=== PATIENT | male | born 1930 | race Hispanic/Latino ===

== ENCOUNTER 2018-10-19 14:42 | Emergency (ER) | payer MEDICARE, MEDICAID ==
[2018-10-19 15:40] LABS: #Eosinphils 0.2 thou/uL (0.0-0.7); #Lymphocytes 1.5 thou/uL (1.20-3.40); #Monocytes 0.6 thou/uL (0.11-0.59); %Basophils 0.3 % (0.0-1.0); %Eosinophils 1.6 % (0.0-10.0); %Lymphocytes 14.2 % (21.0-51.0); %Monocytes 6.2 % (0.0-10.0); %Neutrophils 77.8 % (42.0-75.0); Hemoglobin 14.3 g/dL (14.0-18.0); Mean Corpuscular Hemoglobin 28.7 pg (27.0-31.0); Mean Corpuscular Volume 89.7 fL (78.0-98.0); Mean Platelet Volume 7.5 fL (7.4-10.4); Platelet Count 181 thou/uL (130-400); RBC Distribution Width 12.2 % (11.5-14.5); Red Blood Cell (RBC) Count 4.97 mill/uL (4.70-6.10); White Blood Cell (WBC) Count 10.2 thou/uL (4.8-10.8)
[2018-10-19 16:01] LABS: ALT (SGPT) 37 U/L (8-55); AST (SGOT) 39 U/L (5-34); Albumin 3.9 g/dL (3.4-4.8); Alkaline Phosphatase 70 U/L (40-150); Anion Gap 13 mmol/L (10-20); BUN (Urea Nitrogen) 24 mg/dL (8.4-25.7); Bilirubin, Total 0.4 mg/dL (0.2-1.2); Calc. Creatinine Clearance 0 mL/min (70-130); Calcium 9.3 mg/dL (7.8-10.44); Carbon Dioxide 25 mmol/L (23-31); Chloride 103 mmol/L (98-107); Estimated GFR-MDRD 77; Globulin 2.4 g/dL (2.4-3.5); Glucose 201 mg/dL (83-110); Magnesium 1.7 mg/dL (1.6-2.6); Potassium 4.4 mmol/L (3.5-5.1); Protein, Total 6.3 g/dL (5.8-8.1); Sodium 137 mmol/L (136-145)
== END 2018-10-19 16:49 | disposition home or self-care (01) ==
LOC: ERS 14:42
DX: R20.2 Paresthesia of skin (principal); E78.5 Hyperlipidemia, unspecified; E11.9 Type 2 diabetes mellitus without complications
CPT/HCPCS: 36415; 80053; 83735; 84484; 85025; 93005

== ENCOUNTER 2018-10-30 15:51 | Inpatient (IN) | payer MEDICARE, MEDICAID ==
[2018-10-30 16:35] LABS: #Eosinphils 0.1 thou/uL (0.0-0.7); #Lymphocytes 1.4 thou/uL (1.20-3.40); #Monocytes 0.6 thou/uL (0.11-0.59); #Neutrophils 4.3 thou/uL (1.40-6.50); %Basophils 0.3 % (0.0-1.0); %Eosinophils 1.5 % (0.0-10.0); %Lymphocytes 21.3 % (21.0-51.0); %Monocytes 9.3 % (0.0-10.0); %Neutrophils 67.6 % (42.0-75.0); Hemoglobin 14.7 g/dL (14.0-18.0); Mean Corpuscular HGB CONC 32.2 g/dL (32.0-36.0); Mean Corpuscular Hemoglobin 29.2 pg (27.0-31.0); Mean Corpuscular Volume 90.7 fL (78.0-98.0); Mean Platelet Volume 7.5 fL (7.4-10.4); Platelet Count 179 thou/uL (130-400); RBC Distribution Width 12.2 % (11.5-14.5); Red Blood Cell (RBC) Count 5.03 mill/uL (4.70-6.10); White Blood Cell (WBC) Count 6.4 thou/uL (4.8-10.8)
--- NOTE | 2018-10-30 16:45 | CT ---
CT Brain WO Con History: Intermittent right arm numbness and right face pain Comparison: MRI brain 2015 Findings: No acute hemorrhage or infarct. No midline shift or mass effect. Ventricular size and extra -axial CSF spaces are normal. 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 Mild atrophy. Left subcortical white matter microangiopathy changes as well as left inferior frontal gyrus encephalomalacia. Calvarium is intact. Paranasal sinuses and mastoids are clear. Impression: Chronic findings. No acute intracranial abnormality. Focal area of encephalomalacia left inferior frontal gyrus felt to be chronic.
[2018-10-30 16:55] LABS: ALT (SGPT) 29 U/L (8-55); AST (SGOT) 30 U/L (5-34); Albumin 4.2 g/dL (3.4-4.8); Alkaline Phosphatase 58 U/L (40-150); Anion Gap 17 mmol/L (10-20); BUN (Urea Nitrogen) 17 mg/dL (8.4-25.7); Bilirubin, Total 0.5 mg/dL (0.2-1.2); Calc. Creatinine Clearance 0 mL/min (70-130); Calcium 9.8 mg/dL (7.8-10.44); Carbon Dioxide 25 mmol/L (23-31); Chloride 101 mmol/L (98-107); Estimated GFR-MDRD 79; Globulin 2.9 g/dL (2.4-3.5); Glucose 145 mg/dL (83-110); Potassium 4.5 mmol/L (3.5-5.1); Protein, Total 7.1 g/dL (5.8-8.1); Sodium 138 mmol/L (136-145)
[2018-10-30 20:27] LABS: Troponin I 0.015 ng/mL (< 0.028)
[2018-10-30] MEDS ORDERED: Diltiazem 125 MG in Sodium Chloride 0.9% 100 ML IVPB SCH (22:00)
[2018-10-30] MEDS ORDERED: Ondansetron PF 4 MG/2 ML Vial IVP PRN (22:32)
[2018-10-30] MEDS ORDERED: Acetaminophen 650 MG Suppository PR PRN (22:32)
[2018-10-30] MEDS ORDERED: Ondansetron ODT 4 MG TAB PO PRN (22:32)
[2018-10-30] MEDS ORDERED: Acetaminophen 325 MG TAB PO PRN (22:32)
[2018-10-30] MEDS ORDERED: hydrALAZINE 20 MG/ML VIAL SLOW IVP PRN (22:35)
[2018-10-30 22:40] LABS: Troponin I 0.012 ng/mL (< 0.028)
[2018-10-30] MEDS ORDERED: Dextrose 5% in Water 1,000 ML IV PRN (22:46)
[2018-10-30] MEDS ORDERED: Dextrose 50% Abboject 50 ML SYRINGE SLOW IVP PRN (22:46)
--- NOTE | 2018-10-30 23:34 | HP ---
PRIMARY CARE DOCTOR: Dr. Eliot Akers. CODE STATUS: The code status for this patient is DNR, DNI, meeting with family and patient. TIME OF EVALUATION: 10:30 p.m. CHIEF COMPLAINT: Intermittent right arm numbness and right-sided facial numbness. HISTORY OF PRESENT ILLNESS: An 88-year-old male patient, past medical history of diabetes and hyperlipidemia, came to the hospital after having an episode of right-sided hand and arm numbness, associated with right-sided facial numbness. The patient reported that these symptoms have been going on now for 3 weeks with no clear triggers, no improvement, also the family reporting the patient has had some slurred speech couple of days ago. Symptoms are mild to moderate. The patient was found to be in AFib with RVR, was started on Cardizem drip, presented to the hospital. REVIEW OF SYSTEMS: CONSTITUTIONAL: No fever, chills, or generalized weakness. RESPIRATORY: No cough, sputum production, or shortness of breath. CARDIOVASCULAR: No chest pain. Patient has palpitation. GASTROINTESTINAL: No nausea, vomiting, diarrhea, or abdominal pain. 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 No headache or feeling lightheaded. GENITOURINARY: No burning on urination. EXTREMITIES: No leg swelling. All other systems were reviewed and negative, except for the findings mentioned above. PAST MEDICAL HISTORY: As mentioned in the HPI. SURGICAL HISTORY: Cholecystectomy. PSYCHIATRIC HISTORY: No previous psych history. SOCIAL HISTORY: No alcohol or drugs. No smoking history. Lives at home with family. FAMILY HISTORY: Reviewed and noncontributory to current presentation. ALLERGIES: NO KNOWN DRUG ALLERGIES. REPORTED MEDICATIONS: Metformin, omeprazole, pantoprazole, and tramadol. PHYSICAL EXAMINATION: VITAL SIGNS: On presentation, blood pressure 156/76 with heart rate 94, respiratory rate was 18, temperature 98.2, pain 0/10, and oxygen saturation was 96% on room air. GENERAL APPEARANCE: Patient is alert, oriented, not in acute distress. HEENT: Eyes, normal conjunctivae. Moist oral mucosa. Anicteric. NECK: No JVD. RESPIRATORY: Bilateral air entry. No rales. No wheezes. Symmetric expansion. CARDIOVASCULAR: Normal rate and regular rhythm. No murmurs. No gallop. No edema. ABDOMEN: Soft. Normal bowel sounds. MUSCULOSKELETAL: Baseline range of motion and strength. No tenderness. SKIN: Warm, intact. No pallor. No rash. No redness. Capillary refill seems to be intact. NEUROLOGIC: No evidence of any new focal weakness. Cranial nerves seem to be intact. PSYCH: Patient is in good mood. No anxiety. Optimal judgment. IMAGING: EKG was reviewed. The patient has normal sinus rhythm with a rate of 89 with TX 154, QRS 106, QT corrected 452. Another previous telemetry reading, the patient has in the rate of [address] was done. The patient has a chronic finding. No acute intracranial abnormalities. Focal area, encephalomalacia in left inferior frontal gyrus felt to be chronic. LABORATORY DATA: Labs are reviewed. The patient has white count 6.4, hemoglobin 14.7, MCV 90.7, and platelet count 179. Chemistry; patient has sodium 138, potassium 4.5, chloride 101, carbon dioxide 25, anion gap 17, BUN 17, creatinine 0.91, GFR 79, glucose 145, calcium 9.8, and total bilirubin 0.5. LFTs were negative. Troponin was negative x2. ASSESSMENT AND PLAN: The patient will be placed in the hospital for the following medical problems. 1. Possible transient ischemic attack symptoms. The patient has resolved. Patient has right upper extremity and right facial numbness, still has some numbness on the right hand, the slurred speech also has resolved. This could be likely transient ischemic attacks coming from patient having episodes of paroxysmal flutter and atrial fibrillation, that had been silent at this time. We will do a stroke protocol, consult Neuro, follow recommendations. 2. Atrial fibrillation with rapid ventricular response/flutter. The patient has flutter at 130 to 150s and also episode of atrial fibrillation. The patient was started on Cardizem and now has converted back to normal sinus rhythm. We will do an echo in the morning. We will consult Cardiology for any further recommendation and treatment. 3. Uncontrolled diabetes. Patient has blood sugar of 145. We will place the patient on sliding scale for optimal control. Diabetic diet is advised. Job ID: [id number]
[2018-10-31 00:33] VITALS: BMI 25.7
[2018-10-31 05:58] LABS: #Basophils 0.1 thou/uL (0.0-0.2); #Eosinphils 0.1 thou/uL (0.0-0.7); #Lymphocytes 1.6 thou/uL (1.20-3.40); #Monocytes 0.6 thou/uL (0.11-0.59); #Neutrophils 3.3 thou/uL (1.40-6.50); %Eosinophils 2.4 % (0.0-10.0); %Lymphocytes 28.3 % (21.0-51.0); %Monocytes 10.4 % (0.0-10.0); %Neutrophils 57.9 % (42.0-75.0); Hemoglobin 13.8 g/dL (14.0-18.0); Mean Corpuscular HGB CONC 31.5 g/dL (32.0-36.0); Mean Corpuscular Hemoglobin 28.3 pg (27.0-31.0); Mean Corpuscular Volume 89.8 fL (78.0-98.0); Mean Platelet Volume 7.8 fL (7.4-10.4); Platelet Count 155 thou/uL (130-400); RBC Distribution Width 12.2 % (11.5-14.5); Red Blood Cell (RBC) Count 4.88 mill/uL (4.70-6.10); White Blood Cell (WBC) Count 5.7 thou/uL (4.8-10.8)
[2018-10-31 06:20] LABS: Anion Gap 14 mmol/L (10-20); BUN (Urea Nitrogen) 17 mg/dL (8.4-25.7); Calc. Creatinine Clearance 68 mL/min (70-130); Calcium 9.5 mg/dL (7.8-10.44); Carbon Dioxide 26 mmol/L (23-31); Cardiac Risk 2.6 (Less than 4.5); Chloride 101 mmol/L (98-107); Cholesterol 122 mg/dl (< 200 Desired); Estimated GFR-MDRD Greater than 90; Glucose 115 mg/dL (83-110); HDL Cholesterol 47 mg/dL (>60 Neg Risk); LDL Cholesterol, Calculated 58 mg/dL; Potassium 3.8 mmol/L (3.5-5.1); Sodium 137 mmol/L (136-145); Triglycerides 87 mg/dL (Less than 150)
[2018-10-31] MEDS ORDERED: Aspirin 325 mg Enteric Coated Tablet PO SCH (09:00)
[2018-10-31] MEDS ORDERED: Enoxaparin Sodium 40 MG/0.4 ML SYRINGE SC SCH (09:00)
[2018-10-31] MEDS ORDERED: Amiodarone 150 MG in Dextrose 5% in Water 100 ML IVPB SCH (10:00)
[2018-10-31] MEDS: Amiodarone 450 MG in Dextrose 5% in Water 250 ML IVPB SCH ×2 (10:55→21:52)
[2018-10-31] MEDS ORDERED: Cyclobenzaprine 10 MG TAB PO PRN (11:30)
[2018-10-31] MEDS ORDERED: Famotidine 20 MG TAB PO SCH (11:45)
[2018-10-31] MEDS: HumaLOG 300 UNITS/3 ML VIAL SC PRN ×2 (12:03→18:03)
--- NOTE | 2018-10-31 14:06 | MRI ---
MRI BRAIN: HISTORY: Intermittent right arm numbness and facial pain. Multiplanar multisequence noncontrast enhanced MRI images brain obtained. FINDINGS: Images demonstrate small areas of old infarction in the right cerebral peduncle. Small areas of old stroke with gliotic changes seen in the left frontal and frontoparietal regions. No evidence of acute intracranial masses or lesions seen. IMPRESSION: Old left frontal areas of strokes with gliotic changes and old right cerebral peduncle area of lacuna r infarction. No acute intracranial abnormality seen. Transcribed Date/Time: 10/31/2018 2:14 PM
--- NOTE | 2018-10-31 15:07 | PDOC.PN ---
- Subjective Encounter Start Date: 10/31/18 Encounter Start Time: 15:05 Subjective: f/u for A-flutter RVR on Amiodarone gtt and no prior hx. r/o for CVA with -: negative MRI brain. Feels ok overall. No recurrent numbness or -: paresthesias. - Objective Resuscitation Status - Order Detail: 10/30/18 22:32 Resuscitation Status Routine Resuscitation Status: DNAR: NO Resuscitation Discussed with: as stated by patient MAR Reviewed: Yes Vital Signs & Weight: Vital Signs (12 hours) Temp Pulse Resp BP BP Pulse Ox 10/31/18 11:35 97.4 F L 99 16 101/61 97 10/31/18 07:57 97.1 F L 74 16 130/63 96 10/31/18 03:50 97.9 F 76 16 131/66 97 Weight Weight 145 lb 4.8 oz I&O: 10/30/18 10/31/18 11/01/18 06:59 06:59 06:59 Intake Total 300 110 Balance 300 110 Result Diagrams: 10/31/18 05:24 10/31/18 05:24 Additional Labs: Accuchecks 10/31/18 10/31/18 10:47 06:16 POC Glucose 256 H 114 H Radiology Reviewed by me: Yes (Echo - EF 55-60%, mild LAE) EKG Reviewed by me: Yes (Tele - A-flutter) Phys Exam - Physical Examination Constitutional: NAD HEENT: PERRLA, sclera anicteric, oral pharynx no lesions Neck: no nodes, no JVD, supple, full ROM Respiratory: no wheezing, no rales, no rhonchi, clear to auscultation bilateral S1, S2 Cardiovascular: no significant murmur, no rub, gallop, irregular Gastrointestinal: soft, non-tender, no distention, positive bowel sounds Musculoskeletal: no edema, pulses present Neurological: normal sensation, moves all 4 limbs Psychiatric: A&O x 3 Skin: normal turgor, cap refill <2 seconds Dx/Plan (1) Atrial flutter with rapid ventricular response Code(s): I48.92 - UNSPECIFIED ATRIAL FLUTTER Status: Acute Comment: Continue Amiodarone for rate control, EP consult for consideration of ablation, start Eliquis 5mg BID (2) TIA (transient ischemic attack) Code(s): G45.9 - TRANSIENT CEREBRAL ISCHEMIC ATTACK, UNSPECIFIED Status: Acute Comment: Suspected, likley due to #1, continue ASA 325mg daily (3) Diabetes mellitus type 2 Code(s): E11.9 - TYPE 2 DIABETES MELLITUS WITHOUT COMPLICATIONS Status: Chronic Comment: Resume Metformin, ISS, ADA (4) Dyslipidemia Code(s): E78.5 - HYPERLIPIDEMIA, UNSPECIFIED Status: Chronic Comment: Resume Pravachol 20mg HS - Plan plan discussed w/ family, out of bed/ambulate, DVT proph w/SCDs Stable currently -: Continue ASA 325mg daily -: Resume Pravachol 20mg HS -: EP consult for consideration of ablation -: Start Eliquis 5mg BID * Resume Metformin 500mg BID * Check Carotid sono * Convert to inpt status
[2018-10-31] MEDS ORDERED: Apixaban 5 MG TAB PO SCH (15:15)
--- NOTE | 2018-10-31 16:39 | ULT ---
CAROTID ULTRASOUND WITH GUTIÉRREZ SCALE AND DOPPLER DUPLEX COLOR FLOW IMAGING SPECTRAL ANALYSIS PERFORMED: 10/31/18 CLINICAL INDICATION: CVA, neurologic deficit. FINDINGS: There is scattered plaque formation of the carotid arteries. PEAK SYSTOLIC VELOCITY (CM/S): Right CCA 69 Left CCA 43 Right ICA 71 Left ICA 126 There is antegrade flow within the visualized bilateral vertebral arteries. Note is made that the left ECA is not reliably visualized for comment. Right ECA velocity is approxim ately 41 cm/s. IMPRESSION: 1. 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 2. No hemodynamically significant stenosis is demonstrated within the right internal carotid art sophia. 3. Bilateral antegrade vertebral artery flow. POS: IRINEO
[2018-10-31] MEDS: metFORMIN 500 MG TAB PO SCH (20:02)
[2018-10-31] MEDS: Simvastatin 5 MG TAB PO SCH (20:02)
[2018-10-31] MEDS: Famotidine 20 MG TAB PO SCH (20:02)
--- NOTE | 2018-10-31 21:46 | CON ---
DATE OF CONSULTATION: HISTORY OF PRESENT ILLNESS: Demetri Alberts is a pleasant 88-year-old male with history of diabetes and hyperlipidemia who came to the hospital for further evaluation of right hand and arm numbness as well as right facial numbness. On October 19, he presented to the emergency room with similar type complaints and no specific etiology was found and he was discharged. There was no radiological evaluation. He had continued numbness and yesterday had some slurred speech and his family brought him back. Initial EKG in the emergency room showed normal sinus rhythm; however, he has developed atrial flutter with rate of 150 per minute as well as atrial fibrillation. He was to be placed on diltiazem drip; however, blood pressure was low and so that was not given. I have placed him on amiodarone drip and his rate has slowed; however, he continues to be in atrial fibrillation. He has felt palpitations in the hospital; however he states he has not had that at home. He denies any chest discomfort or shortness of breath. PAST MEDICAL HISTORY: Hypercholesterolemia and diabetes. MEDICATIONS: 1. Aspirin 81 daily. 2. Pepcid 40 mg daily. 3. Metformin 500 b.i.d. 4. Omeprazole 40 daily. 5. Pravastatin 20 at bedtime. ALLERGIES: NONE. SOCIAL HISTORY: He does not smoke or drink. FAMILY HISTORY: Negative for coronary artery disease. REVIEW OF SYSTEMS: A 12-point review of systems is otherwise unremarkable. PHYSICAL EXAMINATION: VITAL SIGNS: Blood pressure 101/61, pulse of 99, irregularly irregular. HEENT: PERRL. NECK: Supple. CHEST: Clear. CARDIAC: S1 and S2 normal without any S3, S4, or murmurs. ABDOMEN: Normal bowel sounds without tenderness or organomegaly. EXTREMITIES: Revealed no clubbing, cyanosis, or edema. NEUROLOGICAL: Grossly intact, although he states that his right arm and right face feel numb. LABORATORY DATA: EKG on admission revealed normal sinus rhythm with incomplete right bundle-branch block. He has since developed atrial fibrillation. Echocardiogram revealed ejection fraction of 55% to 60%, mild left atrial enlargement, mild mitral regurgitation, and mild tricuspid regurgitation. Brain MRI revealed old left frontal areas of strokes with gliotic change in old right cerebellar peduncular area of lacunar infarct. Hemoglobin 13.8, hematocrit 43.9, white count 5700, platelets 155,000. Sodium 137, potassium 3.8, chloride 101, carbon dioxide 26, BUN 17, creatinine 0.71, glucose 115. Troponin I is normal x3. TSH is normal, cholesterol 122, triglycerides 87, HDL 47, LDL 58. IMPRESSION: 1. Finding of strokes on MRI, probably related to his 2-3 weeks of right arm numbness and right facial numbness. 2. Paroxysmal atrial fibrillation and flutter. 3. Normal left ventricular function. 4. Hyperlipidemia. 5. Diabetes. PLAN: Situation discussed with the patient and his daughter. He has never had any gastrointestinal bleeding and now will be started on Eliquis 5 mg b.i.d. He will continue on the IV amiodarone in the hopes of securing normal sinus rhythm. Electrophysiology will be consulted regarding possibility of a catheter ablation of his atrial flutter. Carotid Doppler will be performed. Job ID: [id number]
--- NOTE | 2018-10-31 22:16 | CON ---
DATE OF CONSULTATION: 10/31/2018 CONSULTING PHYSICIAN: Hospitalist Service. IMPRESSION: 1. Minor stroke with residual right sided numbness. 2. Prior left thalamic and left frontal areas of infarction. 3. Atrial fibrillation. PLAN: 1. Eliquis. 2. Low-dose statin. 3. Review carotid ultrasound. HISTORY OF PRESENT ILLNESS: Mr. Alberts is an 88-year-old gentleman with a distant history of Paz palsy. He developed acute facial numbness and finger numbness on the right side prior to admission. There was a slight transient trouble with his speech. His symptoms have improved. He still reports residual numbness in the fingertips. His MRI of the brain did not show any evidence of an acute infarction. His echocardiogram shows a 60% to 65% ejection fraction. He has been seen by Cardiology and started on Eliquis. PAST MEDICAL HISTORY: Otherwise negative. ALLERGIES: NONE. SOCIAL HISTORY: Unremarkable. FAMILY HISTORY: Noncontributory. REVIEW OF SYSTEMS: 10 system review of systems is otherwise negative. PHYSICAL EXAMINATION: VITAL SIGNS: Blood pressure 131/76, pulse 85, respirations 16, and temperature 97.2. HEENT: Pupils equal and reactive. Conjunctivae clear. Oropharynx clear. NECK: Supple. EXTREMITIES: No cyanosis or edema. NEUROLOGIC: He is alert and cooperative. His speech is fluent and clear. Cranial nerves were intact. Motor exam showed good strength bilaterally. His sensation was subjectively decreased in the fingers of the right hand. There is no fix or drift. Gait was not tested. No abnormal movements were seen. IMAGING DATA: Reviewed. SUMMARY: I agree with current treatment plan. I would be happy to follow up with him in the office. Job ID: [id number]
[2018-11-01] MEDS: Famotidine 20 MG TAB PO SCH ×2 (08:40→21:07)
[2018-11-01] MEDS: metFORMIN 500 MG TAB PO SCH ×2 (08:41→21:07)
[2018-11-01] MEDS: Apixaban 5 MG TAB PO SCH ×2 (08:41→21:07)
[2018-11-01] MEDS ORDERED: (Bromfenac Sodium [Prolensa] 1 DROP) L EYE SCH (09:00)
[2018-11-01] MEDS: HumaLOG 300 UNITS/3 ML VIAL SC PRN ×2 (12:09→18:47)
--- NOTE | 2018-11-01 14:10 | PDOC.PN ---
- Subjective Encounter Start Date: 11/01/18 Encounter Start Time: 14:00 Subjective: f/u for TIA/? subacute mild CVA and A-fib/flutter RVR on Amiodarone -: gtt. Feels ok overall and denies any R paresthesias. - Objective Resuscitation Status - Order Detail: 10/30/18 22:32 Resuscitation Status Routine Resuscitation Status: DNAR: NO Resuscitation Discussed with: as stated by patient MAR Reviewed: Yes Vital Signs & Weight: Vital Signs (12 hours) Temp Pulse Resp BP BP BP Pulse Ox 11/01/18 11:31 97.5 F L 81 20 131/59 L 95 11/01/18 07:32 97.4 F L 80 16 119/74 96 11/01/18 03:45 97.9 F 81 16 103/57 L 96 Weight Weight 145 lb 4.8 oz I&O: 10/31/18 11/01/18 11/02/18 06:59 06:59 06:59 Intake Total 300 570 480 Balance 300 570 480 Result Diagrams: 10/31/18 05:24 10/31/18 05:24 Additional Labs: Accuchecks 11/01/18 11/01/18 10/31/18 10:36 05:48 19:21 POC Glucose 223 H 137 H 140 H 10/31/18 16:37 POC Glucose 171 H Laboratory Tests 10/30/18 10/31/18 10/31/18 22:07 09:54 09:54 Magnesium 1.4 L Troponin I 0.012 TSH 3rd Generation 1.0006 Radiology Reviewed by me: Yes (Carotid sono - mod stenosis L ICA) EKG Reviewed by me: Yes (Tele - SR in 70's) Phys Exam - Physical Examination Constitutional: NAD HEENT: PERRLA, sclera anicteric, oral pharynx no lesions Neck: no nodes, no JVD, supple, full ROM Respiratory: no wheezing, no rales, no rhonchi, clear to auscultation bilateral S1, S2 Cardiovascular: RRR, no significant murmur, no rub, gallop Gastrointestinal: soft, non-tender, no distention, positive bowel sounds Musculoskeletal: no edema, pulses present Neurological: normal sensation, moves all 4 limbs Psychiatric: A&O x 3 Skin: normal turgor, cap refill <2 seconds Dx/Plan (1) Atrial flutter with rapid ventricular response Code(s): I48.92 - UNSPECIFIED ATRIAL FLUTTER Status: Acute Comment: Continue Amiodarone for rate control, EP consult for consideration of ablation, start Eliquis 5mg BID (2) TIA (transient ischemic attack) Code(s): G45.9 - TRANSIENT CEREBRAL ISCHEMIC ATTACK, UNSPECIFIED Status: Acute Comment: Suspected, likley due to #1, continue ASA 81mg daily (3) Diabetes mellitus type 2 Code(s): E11.9 - TYPE 2 DIABETES MELLITUS WITHOUT COMPLICATIONS Status: Chronic Comment: Resume Metformin, ISS, ADA (4) Dyslipidemia Code(s): E78.5 - HYPERLIPIDEMIA, UNSPECIFIED Status: Chronic Comment: Resume Pravachol 20mg HS - Plan 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
[2018-11-01] MEDS: Amiodarone 450 MG in Dextrose 5% in Water 250 ML IVPB SCH (16:55)
[2018-11-01] MEDS: Dronedarone HCl 400 MG TAB PO SCH (16:55)
[2018-11-01] MEDS: Simvastatin 5 MG TAB PO SCH (21:07)
[2018-11-02 08:11] VITALS: BP 123/60; TEMP 97.9
[2018-11-02] MEDS ORDERED: Aspirin 81 mg Enteric Coated Tablet PO SCH (09:00)
[2018-11-02] MEDS: Famotidine 20 MG TAB PO SCH (09:29)
[2018-11-02] MEDS: metFORMIN 500 MG TAB PO SCH (09:29)
[2018-11-02] MEDS: Dronedarone HCl 400 MG TAB PO SCH (09:29)
[2018-11-02] MEDS: Apixaban 5 MG TAB PO SCH (09:29)
--- NOTE | 2018-11-02 11:55 | DIS ---
DATE OF ADMISSION: 10/31/2018 DATE OF DISCHARGE: 11/02/2018 DISCHARGE DIAGNOSES: 1. Atrial fibrillation/flutter with rapid ventricular response, current sinus mechanism. 2. Transient ischemic attack. 3. Diabetes mellitus type 2, stable. 4. Dyslipidemia. CONSULTATIONS: 1. Dr. Yobany Mendenhall with Cardiology Service. 2. Dr. Adebayo Magaña with Neurology Service. PERTINENT LABORATORY AND X-RAY FINDINGS: Troponin I negative x3. Total cholesterol 122, triglycerides 87, HDL 47, and LDL 58. TSH 1.00. CBC within normal limits. CT of the brain without contrast dated 10/30/2018 showed no acute intracranial process. Encephalomalacia of the left inferior frontal gyrus noted. MRI of the brain dated 10/31/2018 showed old left frontal gliotic changes and old right cerebral peduncle area of lacunar infarct. 2D transthoracic echocardiogram dated 10/31/2018 showed ejection fraction of 55% to 60%. Mild left atrial enlargement noted. Carotid Doppler study dated 10/31/2018 showed moderate left ICA stenosis. HOSPITAL COURSE: The patient was initially admitted to the Stroke Unit after presenting with intermittent right upper extremity and facial paresthesias. The patient underwent general stroke protocol including CT and MRI imaging of the brain showing no acute CVA. The patient with evidence of a prior old mild CVA as stated previously. The patient received aspirin as well as underwent a carotid Doppler study showing moderate stenosis of the left internal carotid artery. The patient was also noted at the time of admission with atrial fibrillation/flutter with rapid ventricular response with heart rates in the 130s to 150s. The patient was initiated on amiodarone infusion for rate control and remained in sinus mechanism throughout the hospital course. Due to the patient's presentation and arrhythmia, the patient was placed on Eliquis 5 mg b.i.d. and transitioned to Multaq 400 mg b.i.d. The patient remained clinically stable throughout the hospital course, tolerating regular oral intake with stable vital signs. The patient ambulating without assistance or difficulty and overall clinically stable. I have examined the patient at the time of discharge and discussed followup instructions. The patient verbalized understanding and in agreement, ready for discharge on 11/02/2018. DISCHARGE MEDICATIONS: 1. Enteric-coated aspirin 81 mg p.o. daily. 2. Multaq 400 mg p.o. b.i.d. 3. Prolensa one drop to left eye daily. 4. Metformin 500 mg p.o. b.i.d. 5. Omeprazole 40 mg p.o. daily. 6. Pravachol 20 mg p.o. at bedtime. 7. Eliquis 5 mg p.o. b.i.d. FOLLOWUP: The patient may follow up with his primary care provider, Dr. Eliot Akers within 7 days of discharge. The patient may follow up with Dr. Yobany Mendenhall and to call his office for appointment, time, and date. CONDITION ON DISCHARGE: Stable. ACTIVITY: Ad-scott. DIET: ADA. CODE STATUS: Do not attempt resuscitation. DISPOSITION: To home on 11/02/2018. TIME SPENT: Total time preparing and coordinating discharge, 34 minutes. Job ID: [id number]
--- NOTE | 2018-11-02 21:15 | EKG ---
Test Reason : Blood Pressure : / mmHG Vent. Rate : 144 BPM Atrial Rate : 122 BPM P-R Int : 000 ms QRS Dur : 102 ms QT Int : 318 ms P-R-T Axes : 000 216 031 degrees QTc Int : 492 ms Atrial fibrillation with rapid ventricular response Right superior axis deviation Incomplete right bundle branch block Possible Right ventricular hypertrophy Inferior infarct , age undetermined Abnormal ECG Confirmed by Will HERNANDEZ ([id number]) on 11/02/2018 9:15:12 PM Referred By: ONIEL Confirmed By:Will HERNANDEZ
--- NOTE | 2018-11-02 22:23 | CON ---
DATE OF CONSULTATION: 11/01/2018 REFERRING PHYSICIAN: Dr. Yobany Mendenhall. I am seeing Mr. Alberts at our [facility] Telemetry Floor as an Electrophysiology consult and his problems are: 1. Paroxysmal newly found atrial fibrillation/atypical atrial flutter, back in sinus rhythm post IV amiodarone bolus. 2. 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 3. Preserved left ventricular ejection fraction, mild left atrial enlargement, mild tricuspid regurgitation and mitral regurgitation on echo on 10/31/2018. 4. Moderate carotid artery stenosis of the left internal carotid artery by Doppler. 5. History of diabetes and hyperlipidemia. 6. CHADS-VASc score of 6. ALLERGIES: NONE NOTED. MEDICATIONS: At home included: 1. Metformin. 2. Omeprazole. 3. Aspirin. 4. Pravastatin. 5. Bromfenac sodium. 6. Famotidine. SUBJECTIVE: Mr. Alberts was admitted with symptoms of intermittent right arm numbness and right-sided facial numbness. These episodes of symptoms have been going on for the last 3 weeks without clear triggers or improvement. The patient also had reported some slurred speech a couple of days ago. Since it was mild to moderate in the ER, the patient was found in atrial fibrillation with RVR and started on Cardizem drip. 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 He was started on Eliquis and also IV amiodarone. His initial EKG was actually sinus rhythm. Subsequent EKG though revealed atrial fibrillation/flutter. Hence he was intermittently in and out of this rhythm as well. This occurred even prior to the IV amiodarone. The patient is unaware of the palpitations, no dizziness, loss of consciousness, mostly neurological issues as above. He denies any bleeding issues. No fever, chills, or cough. No stroke-like symptoms. No other signs of infection. Rest of 12-point system otherwise unremarkable. PAST MEDICAL HISTORY: As above. Also history of diabetes and hyperlipidemia. SOCIAL HISTORY: The patient denies smoking, EtOH, or drug abuse. FAMILY HISTORY: Significant for coronary artery disease. OBJECTIVE DATA: VITAL SIGNS: Blood pressure is 123/60, heart rate 73, respirations 14, temperature 97.9 degrees Fahrenheit. GENERAL: Alert and oriented man, in no apparent distress. NECK: Supple. Jugular veins not distended. CHEST: Coarse without crackles. HEART: Sounds are regular to rate and rhythm. No murmur or gallop. ABDOMEN: Benign. Bowel sounds positive. EXTREMITIES: Lower extremity without edema, clubbing, or cyanosis. Pulses are adequate. NEUROLOGIC: Nonfocal. MUSCULOSKELETAL: Without joint swelling deformity. SKIN: Without rash. DATABASE: EKG initially revealed sinus rhythm. Subsequent EKG though revealed an atypical atrial flutter, coarse atrial fibrillation at the time of exam. Telemetry reveals sinus rhythm. LABORATORY DATA: The white cell count is 5.7, hemoglobin 13.8, platelet count is 155. Sodium 137, potassium 3.8, BUN is 14, and creatinine is 0.7. TSH is 1.0006. Troponin levels are negative x3. A 2D echo from 10/31/2018 again reveals LVEF of 55% to 60%, mild MR and TR. Mild left atrial enlargement. ASSESSMENT AND PLAN: Mr. Alberts is a pleasant 88-year-old man with hyperlipidemia and diabetes, who was admitted with transient ischemic attack-like symptoms, found to have old cardiovascular accident on the MRI, possibly recent. He clearly has paroxysmal atrial fibrillation coming and going on his monitor. We did discuss the potential mechanism of his stroke associated with atrial fibrillation. I agree with the initiated management of Eliquis for him. Also, it would be reasonable to attempt to suppress the rhythm and transient amiodarone therapy could be considered. Long-term transition to a milder antiarrhythmic like Multaq could be a good option, periodically elective ablation procedure also could be considered although with his advanced age, his care is high risk and I clearly would not want to consider it until his stroke is completely resolved. I will see him back in the office if felt necessary. Job ID: [id number]
== END 2018-11-02 11:27 | disposition home or self-care (01) | DRG 69 ==
LOC: ERS 15:51 → 2SE 19:47 → OBSVTOIN 10-31 14:59
PROVIDERS: ADMIT Hospitalist; ATTEND Hospitalist
DX: G45.9 Transient cerebral ischemic attack, unspecified (principal); I48.92 Unspecified atrial flutter; E78.5 Hyperlipidemia, unspecified; I48.0 Paroxysmal atrial fibrillation; E11.65 Type 2 diabetes mellitus with hyperglycemia; Z90.49 Acquired absence of other specified parts of digestive tract; Z86.73 Personal history of transient ischemic attack (TIA), and cerebral infarction without residual deficits; Z79.84 Long term (current) use of oral hypoglycemic drugs; Z79.899 Other long term (current) drug therapy
CPT/HCPCS: 36415; 36416; 70450; 70551; 80048; 80053; 80061; 83735; 84443; 84484; 85025; 93005; 93010; 93306; 93880; J0282; J1650; J3490; J7070

== ENCOUNTER 2019-05-13 09:21 | Emergency (ER) | payer MEDICARE, MEDICAID ==
[2019-05-13] MEDS ORDERED: Albuterol Sulfate 2.5 mg/0.5 ml Neb ONE ×2 (10:26→12:22)
[2019-05-13 10:31] LABS: #Lymphocytes 0.6 thou/uL (1.20-3.40); #Monocytes 0.5 thou/uL (0.11-0.59); #Neutrophils 4.3 thou/uL (1.40-6.50); %Basophils 0.8 % (0.0-1.0); %Eosinophils 0.3 % (0.0-10.0); %Lymphocytes 10.6 % (21.0-51.0); %Monocytes 8.8 % (0.0-10.0); %Neutrophils 79.6 % (42.0-75.0); Hemoglobin 14.2 g/dL (14.0-18.0); Mean Corpuscular Hemoglobin 28.3 pg (27.0-31.0); Mean Corpuscular Volume 85.7 fL (78.0-98.0); Mean Platelet Volume 7.2 fL (7.4-10.4); Platelet Count 157 thou/uL (130-400); RBC Distribution Width 12.5 % (11.5-14.5); Red Blood Cell (RBC) Count 5.02 mill/uL (4.70-6.10); White Blood Cell (WBC) Count 5.4 thou/uL (4.8-10.8)
[2019-05-13 10:37] LABS: ALT (SGPT) 21 U/L (8-55); AST (SGOT) 24 U/L (5-34); Alkaline Phosphatase 59 U/L (40-110); Anion Gap 13 mmol/L (10-20); BUN (Urea Nitrogen) 14 mg/dL (8.4-25.7); Bilirubin, Total 0.7 mg/dL (0.2-1.2); Calc. Creatinine Clearance 0 mL/min (70-130); Calcium 9.4 mg/dL (7.8-10.44); Carbon Dioxide 27 mmol/L (23-31); Chloride 97 mmol/L (98-107); Estimated GFR-MDRD 84; Globulin 3.1 g/dL (2.4-3.5); Glucose 178 mg/dL (83-110); Protein, Total 7.1 g/dL (5.8-8.1); Sodium 133 mmol/L (136-145)
--- NOTE | 2019-05-13 11:11 | CT ---
POST CONTRAST SOFT TISSUE CT WITH CONTRAST: HISTORY: Right inframandibular mass. Cough, onset two weeks ago. Tonsillar swelling. Sore throat. FINDINGS: Adequate aeration of the sinuses and mastoid air cells. Bilateral orbits are grossly unremarkable. Aerodigestive tract is patent. No mucosal abnormality. Midline fatty raphe of the tongue is preserved . Unremarkable epiglottis. The oral cavity, hypopharynx, supraglottic larynx, glottic larynx and subglottic larynx are grossly u nremarkable. No significant retropharyngeal or prevertebral fluid. Symmetric attenuation of the parotid glands. There is edematous change involving both submandibular g lands, right greater than left. There is induration of the fat surrounding the right submandibular gland. There is no evidence of ductal dilatation or definite evidence of sialolith. Induration of the anterior soft tissue neck subcutaneous fat is noted. There are varying degrees of central canal stenosis and neural foraminal narrowing on the basis of de generative change. Cervical spine vertebral body height is maintained. There is no fracture. Symmetric attenuation of the paraspinal muscles and sternocleidomastoid muscles. Atherosclerosis of both carotid arteries is identified. There is severe stenosis involving the proxim al and mid left internal carotid artery. Upper mediastinum and lung apices are unremarkable. No evidence of lymphadenopathy by size criteria. IMPRESSION: Edematous change involving both submandibular glands, right greater than left. There is induration of the adjacent fat. There is evidence of sialoadenitis, right greater than left. No evidence of an associated obstructing sialolith. Transcribed Date/Time: 05/13/2019 11:16 AM
[2019-05-13] MEDS ORDERED: predniSONE 20 MG TAB ONE (13:00)
== END 2019-05-13 13:34 | disposition home or self-care (01) ==
LOC: ERS 09:21
DX: K11.20 Sialoadenitis, unspecified (principal); J45.909 Unspecified asthma, uncomplicated; E11.9 Type 2 diabetes mellitus without complications; E78.5 Hyperlipidemia, unspecified; E78.00 Pure hypercholesterolemia, unspecified; Z79.84 Long term (current) use of oral hypoglycemic drugs; Z79.891 Long term (current) use of opiate analgesic
CPT/HCPCS: 70491; 80053; 85025; 94640; J7512; J7611

== ENCOUNTER 2020-09-25 07:51 | Emergency (ER) | payer MEDICARE, MEDICAID ==
[2020-09-25] MEDS ORDERED: Acetaminophen 325 MG TAB ONE (10:20)
[2020-09-25 10:39] LABS: Bilirubin Negative (Negative); Blood, Urine Negative (Negative); Clarity Clear (Clear); Glucose, Urine (Dipstick) Normal (Negative); Ketone, Urine Negative (Negative); Leukocyte Negative Leu/uL (Negative); Nitrite Negative (Negative); Protein, Urine (Dipstick) 10 mg/dL (Neg-Trace); Specific Gravity, Urine 1.021 (1.002-1.036); Urobilinogen Normal mg/dL (Less than 2)
== END 2020-09-25 12:10 | disposition home or self-care (01) ==
LOC: ERS 07:51
DX: M54.5 Low back pain (principal); E11.9 Type 2 diabetes mellitus without complications; E78.5 Hyperlipidemia, unspecified; E78.00 Pure hypercholesterolemia, unspecified; Z79.84 Long term (current) use of oral hypoglycemic drugs; Z79.899 Other long term (current) drug therapy
CPT/HCPCS: 72131; 81003

== ENCOUNTER 2020-11-06 12:26 | Emergency (ER) | payer OTHER, MEDICARE, MEDICAID ==
[2020-11-06] MEDS ORDERED: Morphine 4 MG/ML VIAL ONE ×2 (13:12→14:57)
[2020-11-06] MEDS ORDERED: Boostrix 0.5 ML (Tdap) VIAL ONE (13:12)
[2020-11-06 13:40] LABS: #Eosinphils 0.1 thou/uL (0.0-0.7); #Lymphocytes 1.4 thou/uL (1.20-3.40); #Monocytes 0.6 thou/uL (0.11-0.59); #Neutrophils 6.6 thou/uL (1.40-6.50); %Eosinophils 0.7 % (0.0-10.0); %Lymphocytes 16.1 % (21.0-51.0); %Monocytes 6.6 % (0.0-10.0); %Neutrophils 76.5 % (42.0-75.0); Hemoglobin 11.8 g/dL (14.0-18.0); Mean Corpuscular HGB CONC 32.8 g/dL (32.0-36.0); Mean Corpuscular Hemoglobin 28.7 pg (27.0-31.0); Mean Corpuscular Volume 87.4 fL (78.0-98.0); Mean Platelet Volume 6.7 fL (7.4-10.4); Platelet Count 228 thou/uL (130-400); RBC Distribution Width 13.7 % (11.5-14.5); Red Blood Cell (RBC) Count 4.11 mill/uL (4.70-6.10); White Blood Cell (WBC) Count 8.6 thou/uL (4.8-10.8)
[2020-11-06 13:52] LABS: INR-International Normal Ratio 1.5; Prothrombin Time 18.1 sec (12.0-14.7)
[2020-11-06 13:53] LABS: PTT 31.9 sec (22.9-36.1)
[2020-11-06 14:06] LABS: ALT (SGPT) 20 U/L (8-55); AST (SGOT) 29 U/L (5-34); Alkaline Phosphatase 78 U/L (40-110); Anion Gap 16 mmol/L (10-20); BUN (Urea Nitrogen) 22 mg/dL (8.4-25.7); Bilirubin, Total 0.6 mg/dL (0.2-1.2); Calc. Creatinine Clearance 0 mL/min (70-130); Calcium 9.4 mg/dL (7.8-10.44); Carbon Dioxide 21 mmol/L (23-31); Chloride 103 mmol/L (98-107); Globulin 3.1 g/dL (2.4-3.5); Glucose 155 mg/dL (83-110); Potassium 4.4 mmol/L (3.5-5.1); Protein, Total 7.1 g/dL (5.8-8.1); Sodium 136 mmol/L (136-145)
[2020-11-06] MEDS ORDERED: Ketorolac Tromethamine 30 MG/ML VIAL ONE (14:57)
== END 2020-11-06 15:13 | disposition home or self-care (01) ==
LOC: ERS 12:26
DX: S42.111A Displaced fracture of body of scapula, right shoulder, initial encounter for closed fracture (principal); E11.9 Type 2 diabetes mellitus without complications; E78.5 Hyperlipidemia, unspecified; E78.00 Pure hypercholesterolemia, unspecified; Z23 Encounter for immunization; V89.2XXA Person injured in unspecified motor-vehicle accident, traffic, initial encounter
CPT/HCPCS: 70450; 71045; 80053; 85025; 85610; 85730; 90471; 90715; 96374; 96375; 96376; J1885; J2270